=== PATIENT | female | born 1990 | race Caucasian/White ===

== ENCOUNTER 2021-08-06 13:14 | Emergency (ER) | payer BC, SELFPAY ==
[2021-08-06 13:26] VITALS: BP 151/61; PULSE 91; RESP 16; TEMP 36.7; O2SAT 100
[2021-08-06] MEDS: Acetaminophen 500 MG TAB 1000 MG PO (14:06)
--- NOTE | 2021-08-06 15:09 | ED.GENADUL_ITS ---
Discharge Plan Disposition Patient Disposition: HOME Condition: Improving Discharge Details Clinical Impression: Concussion Primary Care Provider: Unknown,Unknown ED Provider: Ulysses Fuentes Home Meds and New Rx's Prescriptions: No Action No Known Home Meds 0RF Discharge Instructions Instructions: Concussion (ED) Additional Instructions: Feel free to continue to take [id number] acetaminophen as needed for pain control. Stay well-hydrated and allow for plenty of both physical and mental rest over the next 3 days. Slowly increase activity as tolerated and go back to rest if symptoms increase. Feel free to follow-up with your primary care provider in the next week for reassessment as needed or if not improving. If you have any significant worsening of symptoms, neurological changes, vomiting, or further concerns return immediately to the emergency department for reassessment. Discharge Data Discharge Date/Time-TO BE ENTERED AT DEPARTURE: 08/06/21 15:36 Medical Decision Making Around 3 hours prior to my assessment patient had injury while skiing. She had approximately 5 minutes of amnesia prior to the event but then had full recovery with no further neurological symptoms. Patient denies any vomiting. States some neck tenderness but more soft tissue than spinal. Patient was wearing a helmet and denies any other injury or trauma. Physical exam shows GCS of 15 with completely intact neurological exam and rest of exam is otherwise unremarkable for trauma. Did discuss with patient risk versus benefit of radiological imaging and at this time decided to conservatively observe patient for additional hour and reassess. Patient is in agreement with this. Plan to treat discomfort with acetaminophen pending results. 1505-patient reassessed and states improvement of symptoms less discomfort and continued no focal neurological complaints. Repeat neurological exam shows no further neurological deficits. Given that patient is continuing to improve I feel that patient has suffered a concussion with no further neurological complaint. Shared decision-making was utilized again for discussion of CT imaging versus conservative management which after this discussion of risk versus benefit patient and I both agree on conservative management with clear re turn and follow-up precautions discussed. Patient will perform brain rest including physical and mental reduction of activities over the next couple days and increase activity as tolerated by headaches or symptoms. After discussion of diagnosis and plan of care patient has no further needs, questions, or concerns and states clear understanding to return to the emergency department for any worsening symptoms. HPI General Mode of arrival: ambulatory . Date/Time Provider Initiated Documentation: 08/06/21 13:16 . Information obtained by: patient . History of Present Illness 31 year old F presents to the emergency department with the chief complaint of fall with head injury, described as moderate, with intensity rated at 8. Quality is described as aching, and is localized to the head. Patient reports no ra diation. Patient started experiencing this hour(s) (3) and it has been other (improving). improves with Rest improves symptom(s), Patient notes no other symptoms.. Patient did receive the following treatments prior to arrival, none Related Data Home Medications Medication Instructions Recorded Confirmed Unknown [No Known Home Meds] 08/06/21 08/06/21 Allergies Allergy/AdvReac Type Severity Reaction Status Date / Time ciprofloxacin [From Cipro] Allergy Unverified 08/06/21 13:30 General Stated Complaint: Trauma CRISTI: 2 Review of Systems Constitutional Constitutional: Denies daytime sleepiness, Denies fatigue, Reports headache(s) and Denies lethargy Eyes Eyes: Denies change in vision ENT Ears, Nose, Mouth, and Throat: Denies vertigo, Denies dizziness, Reports headache(s), Denies epistaxis and Denies neck pain Cardiovascular Cardiovascular: Denies chest pain Respiratory Respiratory: Denies cough and Denies pain on inspiration Gastrointestinal Gastrointestinal: Denies abdominal pain, Denies nausea and Denies vomiting Musculoskeletal Musculoskeletal: Denies abnormal gait, Denies back pain, Denies neck pain and Reports other (right hip pain) Neurologic Neurologic: Reports as per HPI, Denies abnormal speech, Denies abnormal gait, Denies confusion, Denies vertigo, Denies dizziness, Reports headache(s) and Reports memory loss (less than 5 min) Psychiatric Psychiatric: Denies anxiety, Denies confusion, Denies irritability and Reports memory loss (less than 5 min) Endocrine Endocrine: Denies fatigue PFSH All Active Problems (Updated 08/06/21 @ 15:14 by Ulysses Fuentes NP) Concussion (Acute) Social History Smoking/Tobacco Use Status: Never Smoking risk assessment performed?: Yes Substance use type: does not use Exam Const General: cooperative, healthy appearing, no acute distress and well groomed Orientation: alert, awake and oriented x3 HENMT Head: normal to inspection Ears: hearing grossly normal bilaterally and TM's normal bilaterally Mouth: oral mucosae normal and moist mucous membranes Throat: posterior oropharynx normal Eyes Visual Major: normal visual major by confrontation Alignment and Position: alignment normal Periorbital: periorbital findings normal Eyelids: eyelids normal Sclera: sclerae normal Cornea: corneas normal Pupils: PERRL EOM: EOM intact bilaterally Neck Neck: normal visual inspection, full ROM and no meningeal signs Resp Effort & Inspection: normal respiratory effort and able to speak in complete sentences Auscultation: clear to auscultation bilaterally Cardio Rate: regular rate Rhythm: regular rhythm Heart Sounds: S1 normal and S2 normal Neuro General: patient alert, patient awake, patient oriented x3, gait normal, tone normal, moves all extremities, CN's II-XI intact bilaterally and not confused Cognition: normal cognition Speech: speech normal Motor: muscle tone normal throughout, strength 5/5 throughout, no pronator drift, no movement abnormalities noted and no fasciculations Sensory Exam: no sensory deficits noted Coordination: Romberg test normal and Does not sway with eyes open Extrem General: normal exam except as noted and normal gait Right lower extremity: hip/thigh Details: tenderness Location: of the hip (soft tissue no point or bony tenderness) Location: laterally Course Vital Signs Vital signs: Vital Signs Temperature 36.7 C 08/06/21 13:26 Pulse 91 H 08/06/21 13:26 Respiratory Rate 16 08/06/21 13:26 Blood Pressure 151/61 H 08/06/21 13:26 Pulse Oximetry 100 08/06/21 13:26 Temperature 36.7 C 08/06/21 13:26 Temperature Source Skin 08/06/21 13:26 Pulse 91 H 08/06/21 13:26 Respiratory Rate 16 08/06/21 13:26 Respiratory Effort 08/06/21 14:34 Respiratory Depth Normal 08/06/21 14:34 Respiratory Pattern Normal 08/06/21 14:34 Blood Pressure 151/61 H 08/06/21 13:26 Blood Pressure Position Sitting 08/06/21 13:26 Pulse Oximetry 100 08/06/21 13:26 Oxygen Delivery Method Room Air 08/06/21 13:26 Oxygen Flow Rate 0 08/06/21 13:26 Pain Level 10 08/06/21 13:26 Lab/Test Results Lab/Test Results: POC- Test(urine) Negative
[2021-08-06 15:30] VITALS: BP 124/79; PULSE 70; RESP 16; TEMP 36.7; O2SAT 98
== END 2021-08-06 15:36 | disposition home or self-care (01) ==
PROVIDERS: Emergency Provider Nurse Practitioner Family
DX: S06.0X0A Concussion without loss of consciousness, initial encounter (principal); V00.321A Fall from snow-skis, initial encounter
CPT/HCPCS: 81025; 99283